=== PATIENT | male | born 1960 | race Caucasian/White ===

== ENCOUNTER → 2022-06-16 08:04 | Outpatient (CLI) | payer OTHER, SELFPAY ==
--- NOTE | 2022-06-16 08:17 | DI.RAD.S_ITS ---
PROCEDURE: XR KNEE RT 1TO2V INDICATIONS: Disability TECHNIQUE: Two views of the knee were acquired. COMPARISON: [facility], CR, XR KNEE 3VW RT, 12/13/2015, 10:50. FINDINGS: Bones: Knee arthroplasty hardware is in expected position. No suspicious periprosthetic lucency. No fractures. Congruent joint. Soft tissues: Small to moderate size suprapatellar joint effusion. No unusual soft tissue calcifications. IMPRESSION: 1. Right knee joint effusion may be reactive. Chronicity is uncertain. 2. Arthroplasty components in expected location. Dictated by: Salima Reardon M.D. on 06/16/2022 at 13:30 Approved by: Salima Reardon M.D. on 06/16/2022 at 13:40
--- NOTE | 2022-06-16 08:17 | DI.RAD.S_ITS ---
PROCEDURE: XR LUMBAR SPINE 2-3V INDICATIONS: Disability TECHNIQUE: 3 views of the lumbar spine were acquired. COMPARISON: None. FINDINGS: Bones: 5 haf-[id number]-[id number] vertebrae are present. There is mild rightward curvature of lumbar spine centered at L4 level. No vertebral body compression fractures. No suspicious bony lesions. Degenerative endplate changes, loss of disc height and bilateral facet arthrosis throughout lumbar spine is seen. There is 7 millimeter anterolisthesis of L5 on S1. Soft tissues: Overlying bowel gas pattern is normal. No suspicious soft tissue calcifications. IMPRESSION: Degenerative disc disease throughout lumbar spine. No acute compression fracture. 7 millimeter anterolisthesis of L5 on S1. Mild rightward curvature of lumbar spine centered at L3-4 level. Dictated by: Rock Cordoba M.D. on 06/16/2022 at 10:25 Approved by: Rock Cordoba M.D. on 06/16/2022 at 10:29
== END ==
PROVIDERS: Referring Provider Internal Medicine Cardiovascular Disease; Visit Provider Internal Medicine Cardiovascular Disease
DX: M43.17 Spondylolisthesis, lumbosacral region; M51.36 Other intervertebral disc degeneration, lumbar region; M54.50 Low back pain, unspecified; M25.561 Pain in right knee; M25.461 Effusion, right knee; Z96.651 Presence of right artificial knee joint
CPT/HCPCS: 72100; 73560